=== PATIENT | male | born 1995 | race Caucasian/White ===

== ENCOUNTER 2019-04-25 00:07 | Emergency (ER) | payer BC ==
[~2019-04-25] VITALS: Ht 189.2 cm; Wt 111.6 kg
--- NOTE | 2019-04-25 00:35 | PHYS DOC ---
Adult General Chief Complaint Chief Complaint: CHEST PAIN-NON CARDIAC [facility] HPI 24-year-old male presents to the emergency department with complaints of possible allergic reaction he was sent here from work. Patient as well describes intermittent fatigue, nausea, states he's been exposed to the flu. He describes questionable syncope or passing out episodes at work however no one is here to provide detail. He denies any bowel or bladder function. Patient has underlying history of asthma. He is afebrile this time. Nothing makes his symptoms worse, nothing makes his symptoms better All other ROS negative unless documented in HPI Review of Systems Review of Systems See Above Allergies Allergies Allergies Coded Allergies Type Severity Reaction Last Updated Verified Penicillins Allergy Unknown 04/25/19 Yes mushroom Allergy Unknown 04/25/19 Yes Physical Exam Physical Exam See Above Constitutional: Well developed, well nourished, no acute distress, non-toxic appearance. [] HENT: Normocephalic, atraumatic, bilateral external ears normal, oropharynx moist, no oral exudates, nose normal. [] Eyes: PERRLA, EOMI, conjunctiva normal, no discharge. [] Cardiovascular:Heart rate regular rhythm, no murmur [] Lungs & Thorax: Bilateral breath sounds clear to auscultation [] Abdomen: Bowel sounds normal, soft, no tenderness, no masses, no pulsatile masses. [] Skin: Warm, dry, no erythema, rash appreciated to chest (nonallergic). [] Back: No tenderness, no CVA tenderness. [] Extremities: No tenderness, no edema. [] Neurologic: Alert and oriented X 3, no focal deficits noted. [] Psychologic: Affect normal, judgement normal, mood normal. [] Current Patient Data Vital Signs Vital Signs Date Time Temp Pulse Resp B/P (MAP) Pulse Ox O2 Delivery O2 Flow Rate FiO2 04/25/19 00:18 98.4 86 16 141/81 (101) 99 Room Air 98.4 Lab Values Laboratory Tests Test 04/25/19 00:52 White Blood Count 7.8 x10^3/uL (4.0-11.0) Red Blood Count 4.88 x10^6/uL (4.30-5.70) Hemoglobin 15.6 g/dL (13.0-17.5) Hematocrit 45.7 % (39.0-53.0) Mean Corpuscular Volume 94 fL (79-100) Mean Corpuscular Hemoglobin 32 pg (25-35) Mean Corpuscular Hemoglobin Concent 34 g/dL (31-37) Red Cell Distribution Width 12.6 % (11.5-14.5) Platelet Count 170 x10^3/uL (140-400) Neutrophils (%) (Auto) 66 % (31-73) Lymphocytes (%) (Auto) 25 % (24-48) Monocytes (%) (Auto) 7 % (0-9) Eosinophils (%) (Auto) 2 % (0-3) Basophils (%) (Auto) 0 % (0-3) Neutrophils # (Auto) 5.1 x10^3/uL (1.8-7.7) Lymphocytes # (Auto) 1.9 x10^3/uL (1.0-4.8) Monocytes # (Auto) 0.6 x10^3/uL (0.0-1.1) Eosinophils # (Auto) 0.2 x10^3/uL (0.0-0.7) Basophils # (Auto) 0.0 x10^3/uL (0.0-0.2) Sodium Level 142 mmol/L (136-145) Potassium Level 3.6 mmol/L (3.5-5.1) Chloride Level 106 mmol/L (98-107) Carbon Dioxide Level 25 mmol/L (21-32) Anion Gap 11 (6-14) Blood Urea Nitrogen 8 mg/dL (8-26) Creatinine 0.7 mg/dL (0.7-1.3) Estimated GFR (Cockcroft-Gault) 139.8 BUN/Creatinine Ratio 11 (6-20) Glucose Level 96 mg/dL (70-99) Calcium Level 9.3 mg/dL (8.5-10.1) Total Bilirubin 1.0 mg/dL (0.2-1.0) Aspartate Amino Transferase (AST) 13 U/L (15-37) L Alanine Aminotransferase (ALT) 16 U/L (16-63) Alkaline Phosphatase 33 U/L (46-116) L Total Protein 7.6 g/dL (6.4-8.2) Albumin 4.6 g/dL (3.4-5.0) Albumin/Globulin Ratio 1.5 (1.0-1.7) Laboratory Tests 04/25/19 00:52 Laboratory Tests 04/25/19 00:52 EKG EKG [] Radiology/Procedures Radiology/Procedures [] Course & Med Decision Making Course & Med Decision Making Pertinent Labs and Imaging studies reviewed. (See chart for details) []24-year-old male presents to the emergency department with complaints of possible allergic reaction he was sent here from work. Patient as well describes intermittent fatigue, nausea, states he's been exposed to the flu. He describes questionable syncope or passing out episodes at work however no one is here to provide detail. He denies any bowel or bladder function. Patient has underlying history of asthma. He is afebrile this time. Nothing makes his symptoms worse, nothing makes his symptoms better EKG reviewed, sinus arrhythmia, heart rate 60, no evidence of ST elevation OH, interpretation time 00 43 Hent no episodes of syncope nor that of nausea or vomiting emergency department will plan for discharge and follow up with a primary care physician as an outpatient Discussed findings with patient and family at bedside Dragon Disclaimer Dragon Disclaimer This electronic medical record was generated, in whole or in part, using a voice recognition dictation system. Departure Departure Impression: Primary Impression: Skin abnormality Additional Impression: Near syncope Disposition: 01 HOME, SELF-CARE Condition: STABLE Patient Instructions: Near-Syncope, [id number], Rash, [id number]-[id number] Additional Instructions: Recommend follow up with PCP 3 - 5 days Return to the ER with worsening symptoms, intractable pain, fever, altered mental status Tylenol/Motrin as needed for pain Benadryl as needed for rash Problem Qualifiers RICKI POTTER MD Apr 25, 2019 00:35
[2019-04-25 00:59] LABS: BASO % 0 % (0-3); EOS # 0.2 x10^3/uL (0.0-0.7); EOS % 2 % (0-3); HEMATOCRIT 45.7 % (39.0-53.0); HEMOGLOBIN 15.6 g/dL (13.0-17.5); LYMPH # 1.9 x10^3/uL (1.0-4.8); LYMPH % 25 % (24-48); MEAN CORPUSCULAR HEMOGLOBIN 32 pg (25-35); MEAN CORPUSCULAR HGB CONC 34 g/dL (31-37); MEAN CORPUSCULAR VOLUME 94 fL (79-100); MONO # 0.6 x10^3/uL (0.0-1.1); MONO % 7 % (0-9); NEUT # 5.1 x10^3/uL (1.8-7.7); NEUT % 66 % (31-73); PLATELET COUNT 170 x10^3/uL (140-400); RED BLOOD COUNT 4.88 x10^6/uL (4.30-5.70); RED CELL DISTRIBUTION WIDTH 12.6 % (11.5-14.5); WHITE BLOOD COUNT 7.8 x10^3/uL (4.0-11.0)
[2019-04-25 01:07] LABS: CALCIUM 9.3 mg/dL (8.5-10.1); CREATININE 0.7 mg/dL (0.7-1.3); GFR 139.8; POTASSIUM 3.6 mmol/L (3.5-5.1)
[2019-04-25 01:12] LABS: ALBUMIN 4.6 g/dL (3.4-5.0); ALBUMIN/GLOBULIN RATIO 1.5 (1.0-1.7); TOTAL PROTEIN 7.6 g/dL (6.4-8.2)
[2019-04-25 01:15] VITALS: BP 140/71
--- NOTE | 2019-04-25 06:13 | EKG ---
[facility] [address] [place] [address] Test Date: 2019-04-25 Test Time: 00:39:34 Pat Name: OLU BAJWA Department: Room: Gender: M [employer]ester: : 1995 Requested By: RICKI POTTER Order Number: [id number] Reading MD: Measurements Intervals [place] Rate: 59 P: 15 [place]: 136 QRS: 48 QRSD: 106 T: 21 QT: 368 QTc: 368 Interpretive Statements SINUS RHYTHM ATRIAL PREMATURE COMPLEX(ES) NON SPECIFIC ST-T ABNORMALITY (ELEVATION) OTHERWISE NORMAL ECG No previous ECG available for comparison
== END 2019-04-25 01:50 | disposition home or self-care (01) ==
LOC: ER 00:07
DX: R55 Syncope and collapse (principal); L98.9 Disorder of the skin and subcutaneous tissue, unspecified; Z88.0 Allergy status to penicillin; Z91.018 Allergy to other foods
CPT/HCPCS: 36415; 80053; 85025; 93005; 99285-25